=== PATIENT | female | born 1950 | race Caucasian/White ===

== ENCOUNTER → 2016-09-23 | Outpatient (CLI) | payer MEDICARE ==
[~2016-09-23] MED LIST: ASPIRIN81 M2 PO; BENTYL10 MG PO; DISCONTINUED MED; HYDROCHLOROTHIA25 MG PO
--- NOTE | ~2016-09-23 | MY11 ---
[facility] A Service of [facility] RADIOLOGY TEXT RESULTS PATIENT: MANINDER BUENO LOCATION: [facility] : 50 UNIT #: [id number] AGE: [address]: Sandro Barrett MD SEX: F ORDER DR: [id number] [facility] [address] [place], [place] [address] [id number] MR#: [id number] #: [id number] NAME: MANINDER BUENO : 1950 SEX: F STUDY DATE/TIME: 09/23/2016 11:21 UNIT: [facility] ROOM: STUDY DESCRIPTION: MY Mammogram Screening Dig Hal Attending Physician: Sandro Barrett Referring Physician: Sandro Barrett Ordering Physician: Sandro Barrett Primary Care Physician: Sandro Barrett MEDICAL IMAGING REPORT This report is preliminary unless electronic signature is present EXAM Digital screening mammogram 09/23/2016 HISTORY 66-year-old woman. Positive family history, mother. Annual screen. Comparison mammograms date to 10/17/2006 with most recent 08/28/2015. FINDINGS Digital imaging of each breast was completed utilizing screening protocol. Review includes FDA approved CAD device. Breast parenchyma is partially fatty replaced and mildly heterogeneous. I see no suspicious mass characteristics. There are no interval occurring microcalcifications and no suspicious architectural deformity. IMPRESSION Negative mammogram. Annual screening recommended. Patients over the age of 40 are entered into a reminder system with target due date for the next mammogram. A result letter will also be sent to the patient. BIRADS: 1 Negative. Dictated by... Ezekiel Angel M.D. THIS IS AN ELECTRONICALLY VERIFIED REPORT Ezekiel Angel M.D. at 09/23/2016 2:52 PM Demetra TD: 09/23/2016 14:18 JOB #: [id number] [facility] A Service of [facility] RADIOLOGY TEXT RESULTS PATIENT: MANINDER BUENO LOCATION: [facility] : 50 UNIT #: [id number] AGE: [address]: Sandro Barrett MD SEX: F ORDER DR: MEDICAL IMAGING REPORT Page 1 of 1 COPY
== END | disposition home or self-care (01) ==
LOC: CWCC 10:47
DX: Z12.31 Encounter for screening mammogram for malignant neoplasm of breast (principal); Z80.3 Family history of malignant neoplasm of breast
CPT/HCPCS: G0202